=== PATIENT | female | born 1985 | race Caucasian/White ===

== ENCOUNTER → 2021-03-27 10:05 | Outpatient (BNVA) | payer BC, SELFPAY | PROVIDERS: Visit Provider Obstetrics & Gynecology | DX: Z34.90 Encounter for supervision of normal pregnancy, unspecified, unspecified trimester (principal); N92.6 Irregular menstruation, unspecified | CPT/HCPCS: 80307; 81025; 84315; 84443; 85025; 86592; 86762; 86803; 86850; 86900; 87086; 87340; 87491; 87591; 87661; 87806 ==

== ENCOUNTER 2021-09-02 17:55 | Outpatient (CLI) | payer BC, SELFPAY ==
[2021-09-02] VITALS (10 sets, daily range): BP systolic 98–129; BP diastolic 58–73; PULSE 76–90; RESP 18; TEMP 36.9–41.7; BMI 28.0
[2021-09-02 19:07] LABS: Basophils % 0.3 %; Eosinophils # 0.1 10^3/uL (0.0-0.8); Eosinophils % 0.7 %; Hematocrit 36.6 % (37.0-47.0); Hemoglobin 12.8 g/dL (11.5-15.3); Lymphocytes # 1.6 10^3/uL (0.8-4.8); Lymphocytes % 23.2 %; Mean Corpuscular Hemoglobin 31.8 pg (28.0-34.0); Monocytes # 0.4 10^3/uL (0.2-0.9); Monocytes % 5.2 %; Neutrophils # 4.67 10^3/uL (1.8-7.7); Nucleated Red Blood Cells % 0 %; Platelet Count 194 10^3/cmm (130-400); Red Blood Count 4.02 10^6/uL (4.1-5.3); Red Cell Distribution Width 12.9 % (12.1-15.1); White Blood Count 6.7 10^3/uL (4.0-10.0)
[2021-09-02 19:20] LABS: Alanine Aminotransferase 9 U/L (0-33); Albumin Level 3.7 g/dL (3.5-5.2); Alkaline Phosphatase 99 IU/L (35-105); Anion Gap 13.8 (5-19); Aspartate Amino Transferase 18 U/L (0-32); Blood Urea Nitrogen 9 mg/dL (6-20); Calcium 9.2 mg/dL (8.5-10.5); Carbon Dioxide 24 mmol/L (22-29); Chloride 102 mmol/L (98-107); Globulin 2.8 g/dL (1.3-4.6); Glomerular Filtration Rate 141.2 mL/min (90-130); Glucose 97 mg/dL (65-115); Magnesium 1.8 mg/dL (1.7-2.3); Osmolality Calculated 281 mOsm/kg (285-295); Potassium 3.8 mmol/L (3.5-5.1); Sodium 136 mmol/L (136-145); Total Bilirubin 0.4 mg/dL (0.15-1.2); Total Protein 6.5 g/dL (6.6-8.7)
[2021-09-02] MEDS: lactated ringers 1,000 ML 999 ML IV (19:31)
== END 2021-09-02 21:06 | disposition home or self-care (01) ==
LOC: OPOB 17:58 → OBGYN 17:59
PROVIDERS: Visit Provider Family Medicine
DX: O26.899 Other specified pregnancy related conditions, unspecified trimester (principal); Z3A.00 Weeks of gestation of pregnancy not specified; R10.9 Unspecified abdominal pain
CPT/HCPCS: 59025; 80053; 83735; 85025; 99211

== ENCOUNTER 2021-09-03 08:49 | Outpatient (CLI) | payer BC, SELFPAY ==
[2021-09-03 08:50] VITALS: BMI 27.8
[2021-09-03 08:56] VITALS: BP 129/74; PULSE 93
[2021-09-03 08:58] VITALS: BP 125/74; PULSE 93
[2021-09-03 09:24] LABS: Bilirubin Urine Neg (Negative); Blood Urine Neg (Negative); Glucose Urine UA Norm (Normal); Ketones Urine Negative (Negative); Leukocyte Esterase Urine Negative (Negative); Nitrate Urine Negative (Negative); Protein Urine Neg (Negative); Specific Gravity, Urine 1.005 (1.005-1.030); Urine Appearance Clear (CLEAR); Urine Color Yellow (Yellow); Urobilinogen Urine Norm (Negative); pH Urine 7 (5-7)
[2021-09-03 09:26] LABS: Squamous Epithelial Cell Urine RARE /hpf (0-5)
[2021-09-03 09:27] LABS: Add Urine Culture? No
[2021-09-03 09:46] VITALS: BP 118/72; PULSE 89
[2021-09-03 10:09] LABS: Actim Prom Negative
== END 2021-09-03 10:25 | disposition home or self-care (01) ==
LOC: OPOB 08:54 → OBGYN 08:56
PROVIDERS: Visit Provider Obstetrics & Gynecology
DX: O26.899 Other specified pregnancy related conditions, unspecified trimester (principal); Z3A.00 Weeks of gestation of pregnancy not specified
CPT/HCPCS: 59025; 81001; 84112; 99211

== ENCOUNTER 2021-09-17 18:45 | Outpatient (CLI) | payer BC, SELFPAY ==
[2021-09-17] VITALS (10 sets, daily range): BP systolic 95–118; BP diastolic 58–66; PULSE 78–86; TEMP 35.7–36.3; BMI 28.8
[2021-09-17 19:39] LABS: Add Urine Microscopic? NO; Charge for UA Resulting for Rev
[2021-09-17 19:54] LABS: Bilirubin Urine Neg (Negative); Blood Urine Neg (Negative); Glucose Urine UA Norm (Normal); Ketones Urine Negative (Negative); Leukocyte Esterase Urine Negative (Negative); Nitrate Urine Negative (Negative); Protein Urine Neg (Negative); Specific Gravity, Urine 1.005 (1.005-1.030); Urine Appearance Clear (CLEAR); Urine Color Colorless (Yellow); Urobilinogen Urine Norm (Negative); pH Urine 7 (5-7)
== END 2021-09-17 21:41 | disposition home or self-care (01) ==
LOC: OPOB 18:51 → OBGYN 19:03
PROVIDERS: Visit Provider Obstetrics & Gynecology
DX: O26.899 Other specified pregnancy related conditions, unspecified trimester (principal); Z3A.00 Weeks of gestation of pregnancy not specified; R10.9 Unspecified abdominal pain
CPT/HCPCS: 59025; 81003; 99211

== ENCOUNTER → 2022-04-11 13:34 | Outpatient (BNVA) | payer BC, SELFPAY | PROVIDERS: PCP Family Medicine; Visit Provider Family Medicine | DX: L98.9 Disorder of the skin and subcutaneous tissue, unspecified (principal); R53.83 Other fatigue; Z00.00 Encounter for general adult medical examination without abnormal findings | CPT/HCPCS: 80053; 82306; 82607; 83735; 84443; 85025 ==